=== PATIENT | male | born 1965 | race Caucasian/White ===

== ENCOUNTER 2022-08-22 10:06 | Emergency (ER) | payer OTHER ==
[~2022-08-22] VITALS: Ht 160 cm; Wt 73.0 kg
[2022-08-22 10:21] VITALS: BP 136/88
[2022-08-22] MEDS ORDERED: BACITRACIN ZINC OINT UDPKT TOP ONE (12:15)
== END 2022-08-22 13:00 | disposition home or self-care (01) ==
LOC: ER 10:06
DX: Z48.02 Encounter for removal of sutures (principal); Z89.421 Acquired absence of other right toe(s)
CPT/HCPCS: 99282; Z7610